=== PATIENT | male | born 1975 | race African-American/Black ===

== ENCOUNTER 2020-06-20 14:54 | Emergency (ER) | payer OTHER, SELFPAY ==
--- NOTE | 2020-06-20 14:58 | ED.GENADULT ---
HPI - General Adult General Chief complaint: Unspecified Stated complaint: refill Time Seen by Provider: 06/20/20 14:57 Source: patient and RN notes reviewed Mode of arrival: ambulatory Limitations: no limitations History of Present Illness HPI narrative: This is a 44-year-old male that is here today requesting a refill on his blood pressure medication. Patient is from out of town and is here for work he is requesting 2-week supply of blood pressure medication until he can go to see his primary care physician in his hometown. The patient denies SOB, CP, palpitation, extremity numbness, lightheadedness, dizziness, constipation, diarrhea, chills, or fever. bp today 178/103 has not had his pills for 2days. He will get clonidine 0.5 mg time. repeat bp 155/90 Related Data Home Medications Medication Instructions Recorded Confirmed lisinopril-hydrochlorothiazide 1 tablet PO DAILY 06/20/20 06/20/20 Allergies Allergy/AdvReac Type Severity Reaction Status Date / Time No Known Allergies Allergy Verified 06/20/20 15:03 Review of Systems Review of Systems: All systems reviewed & are unremarkable except as noted in HPI and below (10 point system reviewed) [facility] Social History Social History Gender identity (if verbalized by the patient): Male Exam Narrative: Exam Narrative: GENERAL: This is a well-nourished, well-developed patient, in no apparent distress. HEAD: normocephalic, atraumatic. EYES: PERRL. Sclera clear/white. Vision is grossly intact. EARS: External ears normal, auditory canals clear and without drainage, TMs normal without perforation. Hearing grossly intact. NOSE: External nose normal with no obvious nasal discharge, nares without redness, no rhinorrhea. THROAT: Mucous membranes moist, posterior pharynx clear. NECK: Neck supple, non-tender without lymphadenopathy, masses or thyromegaly. CARDIOVASCULAR: Regular rate and rhythm without murmurs, gallops, or rubs. RESPIRATORY: Clear to auscultation. Breath sounds equal bilaterally. No wheezes, rales, or rhonchi. GASTROINTESTINAL: Abdomen soft, non-tender, nondistended. Bowel sounds are active. No hepato-splenomegaly, or palpable masses. No guarding. SKIN: warm, intact with no suspicious lesions or rash, good texture and turgor. NEURO: awake, alert, and oriented to person, place and time. There were no obvious focal neurologic abnormalities. Steady gait EXTREMITIES: Normal range of motion. No edema. No calf tenderness. Negative Homans sign bilaterally. BACK: Nontender without deformity or crepitance. No flank tenderness. Course Vital Signs Vital signs: Vital Signs Temperature 97.6 F 06/20/20 15:12 Pulse Rate 105 H 06/20/20 15:12 Respiratory Rate 16 06/20/20 15:12 Blood Pressure 178/103 H 06/20/20 15:12 Pulse Oximetry 98 06/20/20 15:12 Temperature 97.6 F 06/20/20 15:12 Pulse Rate 105 H 06/20/20 15:12 Respiratory Rate 16 06/20/20 15:12 Blood Pressure 178/103 H 06/20/20 15:12 Pulse Oximetry 98 06/20/20 15:12 Medical Decision Making Vital Signs Vital Signs: Vital Signs Temperature 97.6 F 06/20/20 15:12 Pulse Rate 105 H 06/20/20 15:12 Respiratory Rate 16 06/20/20 15:12 Blood Pressure 178/103 H 06/20/20 15:12 Pulse Oximetry 98 06/20/20 15:12 Temperature 97.6 F 06/20/20 15:12 Pulse Rate 105 H 06/20/20 15:12 Respiratory Rate 16 06/20/20 15:12 Blood Pressure 178/103 H 06/20/20 15:12 Pulse Oximetry 98 06/20/20 15:12 Discharge Plan Discharge Clinical Impression: Medication refill Patient Disposition: Home, Self-Care Condition: Stable Instructions: Antibiotic Form, Lisinopril/Hydrochlorothiazide (By mouth) Additional Instructions: Follow up with primary care physician within 1-2 weeks Notify your physician of any sign and symptoms of infection Take medication as prescribed Please [facility] schedule a followup visit with you
[2020-06-20 15:12] VITALS: BP 178/103; PULSE 105; RESP 16; TEMP 36.4; O2SAT 98
[2020-06-20] MEDS: cloNIDine HCL 0.1 MG TABLET PO (15:16)
[2020-06-20 15:32] VITALS: BP 155/90
== END 2020-06-20 15:35 | disposition home or self-care (01) ==
PROVIDERS: Emergency Provider Nurse Practitioner
DX: Z76.0 Encounter for issue of repeat prescription (principal)
CPT/HCPCS: 99202; A9270; G0463

== ENCOUNTER 2020-06-21 17:39 | Emergency (ER) | payer OTHER, SELFPAY ==
--- NOTE | 2020-06-21 17:49 | ED.GENADULT ---
HPI - General Adult General Chief complaint: Recheck/Abnormal Lab/Rx Stated complaint: Medication is not working Time Seen by Provider: 06/21/20 17:49 Source: patient Mode of arrival: ambulatory Limitations: no limitations History of Present Illness HPI narrative: 44-year-old male patient presents to the [facility] with complaints of hypertension. Patient was seen here yesterday and states that he was out of his high blood pressure medication and that his blood pressure was high. Patient was seen prior the provider and given clonidine in the clinic as well as a refill of his prescribed blood pressure medication. Patient states he was concerned because he normally takes 2 different pills however this prescription combining those 2 pills into 1 pill. Patient states he has been kind of anxious because his blood pressure has not gone down and he is taking 2 of the blood pressure medications today. Patient denies any chest pain, shortness of breath, headache, lightheadedness, dizziness or vision changes. Related Data Home Medications Medication Instructions Recorded Confirmed lisinopril-hydrochlorothiazide 1 tablet PO DAILY 06/20/20 06/21/20 Allergies Allergy/AdvReac Type Severity Reaction Status Date / Time No Known Allergies Allergy Verified 06/21/20 17:44 Review of Systems Review of Systems: Narrative: CONSTITUTIONAL: Denies fever, chills, or sweats. EYES: Denies visual changes, redness, or discharge. ENT: Denies rhinorrhea, congestion, sore throat, or otalgia. CARDIOVASCULAR: Denies chest pain, palpitations, or edema. RESPIRATORY: Denies cough or dyspnea. GASTROINTESTINAL: Denies abdominal pain, nausea, vomiting, or diarrhea. GENITOURINARY: Denies dysuria or hematuria. SKIN: Denies rash or itching. MUSCULOSKELETAL: Denies back pain, joint pain, or myalgia. NEUROLOGIC: Denies headache, numbness, or weakness. PSYCHIATRIC: Denies anxiety or depression. PMFSH Social History Social History Gender identity (if verbalized by the patient): Male Comments At the time of my signature I agree with nursing past medical history, surgical, social, and family history. There is no relevant family history pertinent to the presenting complaint. Exam Narrative: Exam Narrative: GENERAL: Well-appearing, well-nourished, and in no acute distress. HEAD: Normocephalic, atraumatic. EYES: PERRLA and EOMI. ENT: Nares clear, no rhinorrhea or epistaxis. Mucous membranes moist. NECK: Supple. No lymphadenopathy CHEST: Clear to auscultation. No respiratory distress. Patient able to talk in clear complete sentences. No tripoding noted. HEART: Regular rate and rhythm. No murmur heard. Normal peripheral pulses. ABDOMEN: Soft, nontender, nondistended, normal active bowel sounds. EXTREMITIES: Normal range of motion. No edema. SKIN: Warm, dry, no rash. NEURO: No focal deficits. Alert and oriented x3. Course Vital Signs Vital signs: Vital Signs Temperature 36.4 C 06/21/20 17:58 Pulse Rate 103 H 06/21/20 17:58 Respiratory Rate 18 06/21/20 17:58 Blood Pressure 171/106 H 06/21/20 17:58 Pulse Oximetry 100 06/21/20 17:58 Temperature 36.4 C 06/21/20 17:58 Pulse Rate 103 H 06/21/20 17:58 Respiratory Rate 18 06/21/20 17:58 Blood Pressure 171/106 H 06/21/20 17:58 Pulse Oximetry 100 06/21/20 17:58 Vital signs reviewed The patient has been informed that they may have pre-hypertension or Hypertension based on a BP reading in the department. I recommend that the patient call the primary care provider listed on their discharge instructions or a physician of their choice this week to arrange follow up for further evaluation of possible pre-hypertension or Hypertension Medical Decision Making Differential Diagnosis Differential Diagnosis: Differential diagnosis: Hypertension, anxiety, myocardial infarction, acute ACS injury. Discussed with patient that the fact that h
[2020-06-21 17:58] VITALS: BP 171/106; PULSE 103; RESP 18; TEMP 36.4; O2SAT 100
== END 2020-06-21 18:37 | disposition home or self-care (01) ==
PROVIDERS: Emergency Provider Nurse Practitioner Family
DX: I10 Essential (primary) hypertension (principal)
CPT/HCPCS: 99211; G0463